=== PATIENT | male | born 1975 | race Caucasian/White ===

== ENCOUNTER → 2018-05-24 | Outpatient (REF) | payer BC | LOC: M LAB REF 17:50 | PROVIDERS: ATTEND Nurse Practitioner Adult Health | DX: L81.8 Other specified disorders of pigmentation (principal) ==

== ENCOUNTER 2018-10-04 12:25 | Emergency (ER) | payer BC ==
[~2018-10-04] VITALS: Ht 172.7 cm; Wt 104.5 kg
[2018-10-04] MEDS ORDERED: IBUP-1022 PO (12:35)
[2018-10-04] MEDS ORDERED: LEVO150T7 PO (12:35)
[2018-10-04] MEDS ORDERED: AMOX500C PO (12:35)
[2018-10-04] MEDS ORDERED: ONDANSETRON 4MG/2ML VIAL (J2405) IV ONE (16:00)
[2018-10-04] MEDS ORDERED: MORPHINE 4 MG/ML 1ML VIAL/SYRINGE (J2270) IV ONE (16:00)
[2018-10-04 16:01] LABS: BASO # 0.1 10^3/uL (0.0-0.2); BASO % 0.4 % (0.0-1.0); EOS # 0.2 10^3/uL (0.0-0.50); EOS % 1.4 % (0.0-3.0); HEMATOCRIT 50.5 % (42.0-52.0); HEMOGLOBIN 17.4 g/dl (13.5-17.5); LYMPH # 2.2 10^3/uL (1.5-4.5); LYMPH % 15.8 % (24.0-44.0); MEAN CORPUSCULAR HEMOGLOBIN 31.7 pg (27.0-33.0); MEAN CORPUSCULAR HGB CONC 34.5 g/dl (32.0-36.5); MONO # 1.6 10^3/uL (0.0-0.8); MONO % 11.2 % (0.0-5.0); NEUTROPHILS # 9.9 10^3/uL (1.8-7.7); NEUTROPHILS % 70.8 % (36.0-66.0); PLATELET COUNT, AUTOMATED 239 10^3/uL (150-450); RED BLOOD COUNT 5.49 10^6/uL (4.30-6.10)
[2018-10-04 16:12] LABS: BLOOD UREA NITROGEN 13 MG/DL (7-18); CALCIUM LEVEL 9.2 MG/DL (8.5-10.1); CARBON DIOXIDE LEVEL 26 MEQ/L (21-32); CHLORIDE LEVEL 107 MEQ/L (98-107); CREATININE FOR GFR 1.19 MG/DL (0.70-1.30); GLOMERULAR FILTRATION RATE > 60.0 (>60); GLUCOSE, FASTING 113 MG/DL (70-100); POTASSIUM SERUM 4.2 MEQ/L (3.5-5.1); SODIUM LEVEL 141 MEQ/L (136-145)
[2018-10-04] MEDS ORDERED: ISOVUE-370 76% 100ML VIAL (Q9967) As Ordered ONE (16:18)
--- NOTE | 2018-10-04 17:25 | REP ---
CT of the maxillofacial bones with contrast Clinical indication: Dental/facial abscess. Comparison: None Technique: See axial CT of the maxillofacial bones was performed following the uneventful intravenous administration of 75 ml Isovue 370. Axial coronal and sagittal images were provided soft tissue and bone reformations. Findings: There are scattered dental caries. There is streak artifact related to dental amalgam which limits the evaluation of the teeth and oropharynx. Within this limitation, there is periapical lucency at the second maxillary premolar on the right with crescentic rim enhancing pocket of fluid measuring approximately 5 mm. There is soft tissue stranding of the overlying subcutaneous fat of the right face. There is an increased number of non-enlarged cervical lymph nodes bilaterally, greater on the right, likely reactive. There is mild mucosal thickening in maxillary sinuses. The remaining paranasal sinuses and mastoid air cells are clear. The imaged vessels and upper airway are patent. Impression: Minimal 5 mm rim-enhancing pocket of fluid superficial to the periapical lucency at the base of the second maxillary premolar on the right consistent with abscess. Overlying cellulitis. Increased number of nonenlarged lymph nodes. Electronically Signed by Guerda Arauz MD 10/04/2018 05:17 P
[2018-10-04] MEDS ORDERED: AMPICILLIN SOD/SULBACTAM SOD 3 GM in D5W MINI-BAG PLUS 100 ML IV ONE (17:30)
[2018-10-04] MEDS ORDERED: KETOROLAC 30 MG/ML VIAL (J1885) IV ONE (18:30)
[2018-10-04] MEDS ORDERED: MORPHINE 4 MG/ML 1ML VIAL/SYRINGE (J2270) IV PRN (18:30)
[2018-10-04] MEDS ORDERED: AUGM875T28 PO (18:57)
[2018-10-04] MEDS ORDERED: PERC5TAB12 PO (18:57)
[2018-10-04] MEDS ORDERED: OXYCODONE/APAP 5MG/325MG(BULK FOR ED) 1 TABLET PO ONE (19:00)
[2018-10-04 19:51] VITALS: BP 130/80
[2018-10-05] MEDS ORDERED: MAGICMW SSP (11:58)
== END 2018-10-04 19:53 | disposition home or self-care (01) ==
LOC: M ED 12:25
DX: K04.7 Periapical abscess without sinus (principal); E07.9 Disorder of thyroid, unspecified; Z79.890 Hormone replacement therapy; Z88.1 Allergy status to other antibiotic agents
CPT/HCPCS: 70487; 80048; 85025; 96374; 96375; 96376; 99284; J1885; J2270; J2405; Q9967

== ENCOUNTER 2018-10-05 10:31 | Emergency (ER) | payer BC ==
[~2018-10-05] VITALS: Ht 172.7 cm; Wt 104.7 kg
[~2018-10-05 10:31] MED LIST: AMOX500C PO; AUGM875T28 PO; IBUP-1022 PO; LEVO150T7 PO; PERC5TAB12 PO
[2018-10-05] MEDS ORDERED: AMPICILLIN SOD/SULBACTAM SOD 3 GM in D5W MINI-BAG PLUS 100 ML IV ONE (11:30)
[2018-10-05] MEDS ORDERED: MAGICMW SSP (11:58)
[2018-10-05 12:16] VITALS: BP 112/63
== END 2018-10-05 12:27 | disposition home or self-care (01) ==
LOC: M ED 10:31
DX: K04.7 Periapical abscess without sinus (principal); K02.9 Dental caries, unspecified; K08.89 Other specified disorders of teeth and supporting structures; S02.5XXD Fracture of tooth (traumatic), subsequent encounter for fracture with routine healing; X58.XXXD Exposure to other specified factors, subsequent encounter; Y92.9 Unspecified place or not applicable; Y93.9 Activity, unspecified; Y99.9 Unspecified external cause status; E03.9 Hypothyroidism, unspecified; Z79.899 Other long term (current) drug therapy